=== PATIENT | male | born 1940 | race Caucasian/White ===

== ENCOUNTER 2016-11-11 08:49 | Emergency (ER) | payer MEDICARE ==
[~2016-11-11] VITALS: Ht 172.7 cm; Wt 79.5 kg
[~2016-11-11 08:49] MED LIST: ASPI-628 PO; BIMA2.5D5 OD; CRES20T PO; GABA-502 PO; GLIM2TAB PO; LEVO75TA4 PO; LISI40TA PO; METF10002 PO; METR45GE TOP; MULT-1007 PO; PUMP160C PO
[2016-11-11 09:04] VITALS: BP 145/75; PULSE 71; RESP 12; O2SAT 96
--- NOTE | 2016-11-11 09:13 | ED.REPORT ---
HPI-Dizziness / Weakness Date of Service Nov 11, 2016 ED Provider: Arjun Decker DO Pt is a 75 y/o male w/ a hx of NIDDM, HLD, HTN, hypothyroid, presenting to the ED via EMS following an episode of dizziness that occurred one hour prior to arrival. The patient woke up this morning and began to experience vertigo after attempting to walk to the bathroom. The episode was associated with blurry vision, nausea and one episode of emesis. He denies any similar previous episodes of dizziness. He states that he has an exacerbation of symptoms with head movement. He recently had a sinus infection 1 week ago. He denies any slurred speech or numbness/tingling in his extremities. Patient also reports that he recently lost his right great toenail. Blood glucose was 232 en route. Current medication list include gabapentin. Nursing Notes Stated Complaint: DIZZINESS Chief Complaint: Neuro Symptoms/ Deficits Nursing Notes Reviewed: Yes Allergies: Coded Allergies: Sulfa (Sulfonamide Antibiotics) (Verified Allergy, Intermediate, rash, 12/18) niacin (Verified Allergy, Unknown, 11/11/16) flush Scheduled Aspirin (Aspir 81) 81 Mg Tablet.dr 81 MG PO DAILY Atorvastatin (Lipitor) 40 Mg Tablet 40 MG PO DAILY Bimatoprost (Lumigan) 45 Drop/2.5 Ml Ophsoln 1 DROP OD HS Gabapentin (Gabapentin) 300 Mg Capsule 300 MG PO DAILY Glimepiride (Amaryl) 2 Mg Tablet 2 MG PO DAILY Hydrochlorothiazide (Hydrochlorothiazide) 25 Mg Tablet 25 MG PO DAILY Levothyroxine (Levothyroxine) 100 Mcg Tablet 100 MCG PO DAILY Lisinopril (Lisinopril) 40 Mg Tablet 40 MG PO DAILY Metformin (Metformin) 1,000 Mg Tablet 1,000 MG PO BIDAC Multivitamin (Multi-Vitamin Daily) 1 Each Tablet 1 EACH PO DAILY Pumpkin Seed Oil/Saw [place] (Saw [place] 160 mg Softgel) 160 Mg Capsule 160 MG PO DAILY Tamsulosin (Flomax) 0.4 Mg Capsule 0.4 MG PO HS Scheduled PRN Meclizine (Bonine) 25 Mg Tab.chew 25 MG PO TID PRN PRN For Dizziness General Time Seen by MD: 09:11 Chief Complaint Vertigo Hx Obtained From: Patient Arrived By: Ambulance Onset Occurred: Just prior to arrival Symptom Duration: Since onset Location: : No pain Associated with: Reports: Nausea, Vertigo, Visual disturbance, Vomiting, Denies: Numbness Pertinent Negative: Pt denies other symptoms Recent Healthcare: No recent doctor visit, No recent hospitalization Similar Sx Previous: No Risk Factors NIH Stroke Scale Level of Consciousness: Alert and responsive (0) Ask Month & Age: Both questions right (0) Open/Close Eyes/Hand Elevator Constructor Supervisor: Performs both tasks (0) Horizontal EO Movements: None (0) Visual Ruiz: No visual loss (0) Facial Palsy: Normal symmetry (0) Right Arm Motor Drift (10s): No drift 10 sec (0) Left Arm Motor Drift (10s): No drift 10 sec (0) Right Leg Motor Drift (5s): No drift 5 sec (0) Left Leg Motor Drift (5s): No drift 5 sec (0) Limb Ataxia FNF/Heel-Sparks: No ataxia (0) Sensation (Arms/Legs/Face): No sensory loss (0) Language Aphasia: Loss fluency ID matls (1) Dysarthria: Slurring intelligible (1) Extinction/Inattention: No exctinct/inattent (0) NIHSS Score: 1 Time NIHSS Performed: 09:24 Date NIHSS Performed: Nov 11, 2016 Past Medical History Past Medical History Non insulin dependent diabetes mellitus Glaucoma Neuropathy Hypothyroid Hyperlipidemia Hypertension Past Surgical History Reports arm surgery Smoking History Former Smoker, Never Smoker Social History Alcohol Use: Denies alcohol use Drug Use: Denies drug use Other Social History: Good social support, , Local resident Occupation lives with . Ambulatory Status Independent Review of Systems Eyes: Reports: Blurred bilateral GI: Reports: Nausea, Vomiting (1 episode) Neurologic: Reports: Dizziness, Problem walking (secondary to dizziness), Spinning sensation, Vision change, Denies: Slurred speech Complete sys rev & neg: except as marked. Physical Exam Initial Vital Signs Vital Signs (First) Date Time Temp Pulse Resp B/P Pulse Ox O2 Delivery O2 Flow Rate FiO2 11/11/16 09:04 36.1 71 12 145/75 96 Room Air Initial VS: Reviewed, Vital signs normal Neck: Supple, Non-tender, Full range of motion Extremities: Vascular intact, Neuro intact, No swelling, No tenderness Skin: Warm, Dry, No cyanosis Psychiatric: Mood/affect normal, Behavior normal, Normal thought content General/Constitutional: Awake, Alert, No acute distress Head / Eyes: Atraumatic, Normocephalic, PERRL, EOMI, No nystagmus Respiratory / Chest: Atraumatic, Breath sounds NL, Breath sounds = bilat, No respiratory distress Cardiovascular: Heart rate NL, Regular rhythm, Heart sounds NL Neurologic: Oriented X3, No motor deficits, No sensory deficits, CN II - XII intact, Reflexes equal bilat, Cerebellar NL (Normal Finger-Nose), Memory NL Mild slurred speech NIH stroke scale = 1 Unable to perform tandem gait ENT: Atraumatic, Airway patent, Mucous membranes moist, Pharynx NL, Tympanic membs NL, Ext aud canal NL Abdomen: Atraumatic, Soft Ankle / Foot: Neurologic intact, Vascular intact Right Great Toe: Positive: Erythema present, Nail avulsion... (Complete), Swelling present..., Tenderness present... Right great toenail injury Interpretation & Diagnostics Interpretation & Diagnostics: MRI stroke protocol: IMPRESSION: BRAIN MRI: No MRI evidence of acute intracranial pathology. Minimal likely chronic ischemic change in the left frontal lobe white matter. BRAIN MR ANGIOGRAM: No MRI evidence of aneurysm, occlusion, or hemodynamically significant stenosis. NECK MR ANGIOGRAM: No MRI evidence of aneurysm, occlusion, or hemodynamically significant stenosis. The estimate of stenosis included in the report of the imaging study was calculated using the NASCET method Dictated by: Kunal Kidd M.D. on 11/11/2016 at 12:48 Approved by: Kunal Kidd M.D. on 11/11/2016 at 13:01 Lab Results Interpretation Result Diagram: 11/11/16 1000 11/11/16 1000 Test 11/11/16 10:00 11/11/16 11:15 White Blood Count 11.6th/mm3 (3.8-10.1) Red Blood Count 5.04mil/mm3 (4.40-5.80) Hemoglobin 15.4g/dL (13.8-17.2) Hematocrit 44.5% (41.0-50.0) Mean Corpuscular Volume 88.3fL (81-100) Mean Corpuscular Hemoglobin 30.6pg (27.0-35.0) Mean Corpuscular Hemoglobin Concent 34.6% (32.0-37.0) Red Cell Distribution Width 12.7% (12.3-15.4) Platelet Count 191bil/L (150-400) Neutrophils (%) (Auto) 89.2% (40-74) Lymphocytes (%) (Auto) 5.8% (14-46) Monocytes (%) (Auto) 4.2% (4-12) Eosinophils (%) (Auto) 0.3% (0-5) Basophils (%) (Auto) 0.2% (0-3) Prothrombin Time 9.9sec (8.1-12.5) Prothromb Time International Ratio 0.93ratio Activated Partial Thromboplast Time 24.9sec (22.8-33.0) Sodium Level 139mEq/L (134-144) Potassium Level 4.3mEq/L (3.5-5.2) Chloride Level 99mEq/L (97-108) Carbon Dioxide Level 23mmol/L (18-29) Blood Urea Nitrogen 30mg/dL (8-27) Creatinine 1.27mg/dL (0.76-1.27) Estimat Glomerular Filtration Rate 59mL/min (>59) Glucose Level 257mg/dL (60-99) Calcium Level 9.3mg/dL (8.5-10.1) Total Bilirubin 0.3mg/dL (0.0-1.2) Aspartate Amino Transf (AST/SGOT) 19U/L (0-50) Alanine Aminotransferase (ALT/SGPT) 22U/L (0-44) Alkaline Phosphatase 69U/L (25-160) Troponin T 0.010ug/L (0.0-0.011) Total Protein 7.3g/dL (6.4-8.4) Albumin 4.1g/dL (3.4-5.0) Hold Turpin Top Tube Received (Received) Urine Color Yellow (YELLOW) Urine Appearance Clear (CLEAR,HAZY) Urine pH 6.0 (5.0-8.0) Urine Specific [place] 1.020 (1.003-1.035) Urine Protein Tracemg/dL (NEG,TRACE) Urine Glucose (UA) 250mg/dL (NEGATIVE) Urine Ketones 15mg/dL (NEGATIVE) Urine Occult Blood Negative (NEGATIVE) Urine Nitrite Negative (NEGATIVE) Urine Bilirubin Negative (NEGATIVE) Urine Urobilinogen Normalmg/dL (NORMAL) Urine Leukocyte Esterase Negative (NEGATIVE) Urine RBC 0-2/hpf (0-2) Urine WBC 0-5/hpf (0-5) Urine Epithelial Cells None/hpf (NONE-MOD) Urine Crystals None seen (NONE SEEN) Urine Bacteria None/hpf (NONE-FEW) Urine Hyaline Casts None/lpf (NONE) Urine Granular Casts None seen (NONE SEEN) Urine Waxy Casts None seen (NONE SEEN) Urine Red Blood Cell Casts None seen (NONE SEEN) Urine White Blood Cell Casts None seen (NONE SEEN) Urine Mucus None seen (None Seen) Urine Trichomonas None seen (NONE SEEN) Urine Yeast None (NONE SEEN) Urinalysis Comment None Urine Culture Reflexed Not indicated ECG Interpretation ECG Interpretation: Sinus rhythm rate 69 APC Time: 10:26 Interpreted by: ED physician Normal ECG Interpretation: No acute ischemic changes X-Ray Chest Interpretation Chest Xray Interpretation: IMPRESSION: Acute disease is not identified. Dictated by: Kelby Sloan M.D. on 11/11/2016 at 10:09 Approved by: Kelby Sloan M.D. on 11/11/2016 at 10:10 View: Portable, 1 view Interpretation / Wet Read by: Interpret - Radiologist CT Head Interpretation IMPRESSION: No acute change intracranially. Mild atrophy diffusely present. In the posterior right scalp is focal area of abnormal density of approximately 1.5 cm diameter. Subcutaneous bruising or hematoma could cause this appearance. No history of trauma is given.. Dictated by: Kelby Sloan M.D. on 11/11/2016 at 10:10 Approved by: Kelby Solan M.D. on 11/11/2016 at 10:14 Study: Head CT no contrast Interpretation / Wet Read by: Interpret - Radiologist Re-Eval/Medical Decision Med Decision/Clinical Course Likely peripheral vertigo given the normal MRI absence of other signs or symptoms of stroke. Meclizine given with improvement in symptoms. Return and follow-up precautions given Re-Evaluation/Progress #1: Time of Eval: 10:00 Re-Evaluation/Progress Note: Pt rechecked. Unable to perform tandem gait. Re-Evaluation/Progress #2: Time of Eval: 13:11 Re-Evaluation/Progress Note: Pt rechecked. Informed pt of plan for discharge. Pt understands and agrees with plan for discharge. F/U instructions and RTER warnings given. All questions addressed. Counseled Regarding: Diagnosis, Lab results, Need for follow-up, When/why to return to ED Patient Discharge & Departure Impression: Primary Impression: Vertigo Disposition: Home Discharge Condition All VS Reviewed: Yes Condition: Stable Additional Instructions: Your workup in the ER is reassuring, it does not appear that you have had a stroke. Use meclizine as needed for dizziness. Continue taking aspirin daily. Call your doctor in the morning for close follow-up. Return to the ER as needed for worsening symptoms. Referrals: Radha Steven MD (PCP) Scribe Attestation Portions of this note were transcribed by Umm Restrepo and Zackary Trevino. I, Dr. Decker, personally performed the history, physical exam and medical decision-making; I reviewed and confirmed the accuracy of the information in the transcribed note. Radha Steven MDArjun Munson Nov 11, 2016 09:13 [facility] RESTREPO Nov 11, 2016 09:24 ZACKARY TREVINO Nov 11, 2016 09:37
[2016-11-11] MEDS ORDERED: TAMS0.4C98 PO (09:29)
[2016-11-11] MEDS ORDERED: HYDR25TA4 PO (09:29)
[2016-11-11] MEDS ORDERED: LEVO100T6 PO (09:29)
[2016-11-11] MEDS ORDERED: LIP40 PO (09:29)
[2016-11-11] MEDS ORDERED: 0.9% Sodium Chloride 1,000 ML IV ONE (09:31)
--- NOTE | 2016-11-11 10:12 | DRSVH ---
PROCEDURE: X-RAY CHEST ONE VIEW, PORTABLE ([id number]) INDICATIONS: dizziness TECHNIQUE: One view of the chest was acquired. COMPARISON: None. FINDINGS: Surgical changes and devices: telemetry monitor leads are seen over the chest. Lungs and pleura: No pleural effusions or pneumothorax. Lungs are clear. Mediastinum: Mediastinal contours appear normal. Heart size is normal. Bones and chest wall: No suspicious bony lesions. Overlying soft tissues appear unremarkable. IMPRESSION: Acute disease is not identified. Dictated by: Kelby Sloan M.D. on 11/11/2016 at 10:09 Approved by: Kelby Sloan M.D. on 11/11/2016 at 10:10
[2016-11-11 10:15] LABS: BASOPHILS % (AUTO) 0.2 % (0-3); EOSINOPHILS % (AUTO) 0.3 % (0-5); MONOCYTES % (AUTO) 4.2 % (4-12); Mean Corpuscular Hemoglobin 30.6 pg (27.0-35.0); Mean Corpuscular Volume 88.3 fL (81-100); NEUTROPHILS % (AUTO) 89.2 % (40-74); Platelet Count 191 bil/L (150-400)
--- NOTE | 2016-11-11 10:16 | DRSVH ---
PROCEDURE: CT BRAIN WITHOUT CONTRAST ([id number]) INDICATIONS: dizziness TECHNIQUE: Noncontrast 4.5 mm thick angled axial sections acquired from the foramen magnum to the vertex, with c oronal reformats. COMPARISON: None. FINDINGS: Image quality: Excellent. CSF spaces: Basal cisterns are patent. No extra-axial fluid collections. The ventricles are symmet berna in size and shape. Brain: No intracranial bleeds or masses. There is cerebral volume loss for age, with resultant vent ricular and sulcal prominence. There are periventricular and deep white matter chronic small vessel ischemic changes. There is intracranial internal carotid artery atherosclerosis. Skull and face: Calvarium and visualized facial bones appear intact, without suspicious lesions. Sinuses: Visualized sinuses and mastoids are clear. IMPRESSION: No acute change intracranially. Mild atrophy diffusely present. In the posterior right scalp is focal area of abnormal density of approximately 1.5 cm diameter. Subc utaneous bruising or hematoma could cause this appearance. No history of trauma is given.. Dictated by: Kelby Sloan M.D. on 11/11/2016 at 10:10 Approved by: Kelby Sloan M.D. on 11/11/2016 at 10:14
[2016-11-11 10:33] LABS: INR 0.93 ratio
[2016-11-11 10:41] LABS: TROPONIN T 0.01 ug/L (0.0-0.011)
[2016-11-11 11:53] LABS: APPEARANCE,URINE CLEAR (CLEAR,HAZY); COLOR,URINE YELLOW (YELLOW); OCCULT BLOOD,URINE NEGATIVE (NEGATIVE); UROBILINOGEN,URINE NORMAL (NORMAL)
[2016-11-11 12:27] VITALS: BP 141/72; PULSE 76; RESP 14; O2SAT 98
--- NOTE | 2016-11-11 13:02 | DRSVH ---
PROCEDURE: MRI STROKE PROTOCOL ([id number]) Pre- and post-contrast brain MRI, non-contrast brain MR angiogram, pre- and postcontrast neck MR gio ogram INDICATIONS: dizziness TECHNIQUE: Brain: Noncontrast axial T1 spin echo, axial T2 fast spin echo, sagittal and axial FLAIR, coronal T2 fast spin echo, axial gradient echo, axial diffusion and ADC through the brain. After the administr ation of contrast, axial 3D VIBE of the cranial vasculature and brain. Brain MRA: Non-contrast 3-D time of flight MR angiogram, with multiple fmrootc-xadqafwqv-tylpcpgmpg (MIP) reformats performed. Neck MRA: Axial and sagittal TruFISP through the neck. Coronal dynamic MR angiogram during administ ration of contrast in the arterial and venous phases, with 3-dimenstional vufdjla-kcqacmkgh-fatfyofyv n (MIP) reformats constructed from subtraction images. COMPARISON: Head CT from 11/11/2016. FINDINGS: Image quality: Excellent. BRAIN: CSF spaces: Ventricles are normal in size and shape. Basal cisterns are patent. No extra-axial flu id collections. Brain: No intracranial bleeds or mass effects. Bhagat-white matter interface is normal. Diffusion we ighted images show no acute ischemic insults. There several foci of increased T2 signal in the left f rontal lobe deep white matter most consistent with chronic ischemic change. Brainstem appears normal. Normal intravascular flow voids are present. No abnormal intracranial enhancement. Skull and face: Calvarial marrow signal is normal. Orbits appear normal. Sinuses: Sinuses and mastoids are clear. BRAIN MR ANGIOGRAM: Anterior circulation: Intracranial internal carotid arteries are normal in size and enhancement. Th e flow within the paired anterior cerebral arteries is normal and symmetric. The flow within the mid dle cerebral arteries is normal and symmetric. The anterior communicating artery is seen. No stenos es, occlusions, or aneurysms. Posterior circulation: The visualized portions of the vertebral arteries demonstrate normal caliber, and join to form a normal appearing basilar artery. The flow within the posterior cerebral arteries is normal and symmetric. No stenoses, occlusions, or aneurysms. No posterior communicating arterie s are identified. NECK MR ANGIOGRAM: Carotids: Great vessels demonstrate a conventional anatomy as they arise from the aortic arch. The origins of the common carotid arteries appear patent. The calibers and courses of both common caroti d arteries are normal. The bifurcation regions appear normal bilaterally with minimal atheromatous p laque left slightly greater than right. The internal carotid arteries demonstrate normal course and caliber. Posterior circulation: The origins of the vertebral arteries appear patent. More superior portions of both vertebral arteries demonstrate normal course and caliber, and join to form a normal appearing basilar artery. Miscellaneous: Subclavian arteries appear patent. Pre-contrast images through the neck show no soft tissue abnormalities. IMPRESSION: BRAIN MRI: No MRI evidence of acute intracranial pathology. Minimal likely chronic ischemic change in the left frontal lobe white matter. BRAIN MR ANGIOGRAM: No MRI evidence of aneurysm, occlusion, or hemodynamically significant stenosis. NECK MR ANGIOGRAM: No MRI evidence of aneurysm, occlusion, or hemodynamically significant stenosis. The estimate of stenosis included in the report of the imaging study was calculated using the NASCET method Dictated by: Kunal Kidd M.D. on 11/11/2016 at 12:48 Approved by: Kunal Kidd M.D. on 11/11/2016 at 13:01
[2016-11-11] MEDS ORDERED: MECL-114 PO (13:08)
--- NOTE | 2016-11-11 13:08 | NUR ---
Evaluation completed. Please go to "Notes" then click on "Assessments and Notes" (bottom left corner of screen). Then select appropriate discipline tab on top of screen.
[2016-11-11 13:27] VITALS: BP 140/75; PULSE 72; RESP 16; O2SAT 99
== END 2016-11-11 13:25 | disposition home or self-care (01) ==
LOC: EDBD 08:49 → EDUNIT# 08:49 → SED 08:49
DX: R42 Dizziness and giddiness (principal); R11.0 Nausea; H53.8 Other visual disturbances; I10 Essential (primary) hypertension; E78.5 Hyperlipidemia, unspecified; E03.9 Hypothyroidism, unspecified; H40.9 Unspecified glaucoma; Z79.82 Long term (current) use of aspirin; Z79.84 Long term (current) use of oral hypoglycemic drugs; Z87.891 Personal history of nicotine dependence; Z88.2 Allergy status to sulfonamides; Z88.8 Allergy status to other drugs, medicaments and biological substances
CPT/HCPCS: 36415; 70450; 70549; 70553; 71010; 80053; 81000; 82948; 84484; 85025; 85610; 85730; 92610; 93005; 96360; 99285; A9585; J7030